=== PATIENT | female | born 1950 | race Hispanic/Latino ===

== ENCOUNTER 2018-08-24 16:37 | Outpatient (CLI) | payer MEDICARE | END 2018-08-24 16:38 | disposition home or self-care (01) | LOC: LAB 16:37 ==

== ENCOUNTER 2018-08-29 08:22 | Outpatient (CLI) | payer MEDICARE | END 2018-08-29 08:23 | disposition home or self-care (01) | LOC: RAD 08:22 ==

== ENCOUNTER 2018-09-01 06:47 | Day surgery (SDC) | payer MEDICARE ==
[2018-09-01] MEDS ORDERED: Lidocaine PF 2% (5 ml) Inj (For Cardiac Arrhy) ONE (08:21)
[2018-09-01] MEDS ORDERED: Propofol 10 mg/ml Inj (20 ML) ONE (08:21)
[2018-09-01 09:56] VITALS: TEMP 98; O2SAT 99
[2018-09-01] MEDS ORDERED: Sodium Chloride 0.9% 1,000 ML IV SCH (10:00)
[2018-09-01 10:20] VITALS: RESP 14
[2018-09-01 10:48] VITALS: BP 125/70; PULSE 50
== END 2018-09-01 11:55 | disposition home or self-care (01) ==
LOC: ENDO 06:47
PROVIDERS: ATTEND Internal Medicine Gastroenterology
DX: K20.9 Esophagitis, unspecified (principal); K29.50 Unspecified chronic gastritis without bleeding
CPT/HCPCS: 43239; 88305; 88312; 88342; J2704; J7030; J7040

== ENCOUNTER 2018-09-06 11:06 | Outpatient (CLI) | payer MEDICARE | END 2018-09-06 11:07 | disposition home or self-care (01) | LOC: LAB 11:06 ==

== ENCOUNTER 2018-09-07 08:47 | Outpatient (CLI) | payer MEDICARE | END 2018-09-07 08:48 | disposition home or self-care (01) | LOC: RAD 08:47 ==